=== PATIENT | male | born 1985 | race Two or more races ===

== ENCOUNTER 2017-09-14 17:04 | Emergency (ER) | payer OTHER ==
[~2017-09-14] VITALS: Ht 177.8 cm; Wt 102.1 kg
[2017-09-14 17:14] VITALS: BP 125/89
== END 2017-09-14 21:24 | disposition home or self-care (01) ==
LOC: ER 17:04
DX: M26.623 Arthralgia of bilateral temporomandibular joint (principal)
CPT/HCPCS: 93005